=== PATIENT | male | born 1985 | race Hispanic/Latino ===

== ENCOUNTER → 2019-02-13 | Emergency (ER) | payer SELFPAY ==
[~2019-02-13] MED LIST: DIAZEPAM INJ 5 MG/ML 2 ML ONE; IBUPROFEN 200 MG TAB ONE; KETOROLAC TROMETHAMINE 60 MG/2 ML VIAL ONE
--- OUTSIDE RECORDS SUMMARY | 2019-02-13 15:44 | XMS REPORT ---
Author Author [facility] Address Unknown Phone Unavailable Care Team Providers Care Spray Ii Painter Name Role Phone Unavailable Unavailable Payers Payer Name Policy Type Policy Number Effective Date Expiration Date Problems This patient has no known problems. Allergies, Adverse Reactions, Alerts Allergy Name Allergy Type Status Severity Reaction(s) Onset Date Inactive Date Treating Clinician Comments egg DA Active U 2018-01-05 00:00:00 No Known Allergies DA Active U 2014-08-26 00:00:00 Medications This patient has no known medications.
--- NOTE | 2019-02-13 16:00 | NUR ---
CALLED PT FROM [place] AND WALKED TO PARKING LOT, PT NO WHERE TO BE FOUND
== END | disposition left against medical advice (07) ==
LOC: FSED 15:41
DX: I10 Essential (primary) hypertension (principal)